=== PATIENT | male | born 1980 | race African-American/Black ===

== ENCOUNTER 2016-06-29 15:56 | Emergency (ER) | payer SELFPAY ==
[~2016-06-29] VITALS: Ht 203.2 cm; Wt 120.0 kg
[2016-06-29 15:58] VITALS: BP 134/86
== END 2016-06-29 20:58 | disposition left against medical advice (07) ==
LOC: ER 15:57
DX: M62.838 Other muscle spasm (principal); Z53.21 Procedure and treatment not carried out due to patient leaving prior to being seen by health care provider